=== PATIENT | male | born 1950 | race Asian ===

== ENCOUNTER 2019-05-18 17:15 | Inpatient (IN) | payer OTHER ==
[~2019-05-18] VITALS: Ht 170.2 cm; Wt 77.6 kg
[2019-05-18] MEDS ORDERED: FINA5TAB41 PO (17:36)
[2019-05-18] MEDS ORDERED: AMOX500C2 PO (17:36)
[2019-05-18] MEDS ORDERED: AMLO2.5T4 PO (17:36)
[2019-05-18] MEDS ORDERED: FOLI0.4T14 PO (17:36)
[2019-05-18] MEDS ORDERED: AMLO5TAB9 PO (17:38)
[2019-05-18] MEDS ORDERED: FOLI1 PO (17:38)
[2019-05-18] MEDS ORDERED: 0.9% SODIUM CHLORIDE 10 ML SYRINGE IVP PRN ×2 (18:00→20:45)
[2019-05-18] MEDS ORDERED: SODIUM CHLORIDE 0.9% 2,350 ML IV ONE (18:03)
[2019-05-18] MEDS ORDERED: IOVERSOL 320 MG/ML 100 ML VIAL ONE (18:10)
[2019-05-18] MEDS ORDERED: SODIUM CHLORIDE 0.9% 100 ML ONE (18:10)
[2019-05-18] MEDS ORDERED: ACETAMINOPHEN 500 MG TABLET PO ONE (18:15)
[2019-05-18 18:45] LABS: APPEARANCE,URINE CLOUDY (CLEAR); BILIRUBIN,URINE NEGATIVE (NEGATIVE); GLUCOSE, URINE (UA) NEGATIVE (NEGATIVE); KETONES,URINE NEGATIVE (NEGATIVE); LEUKOCYTE ESTERASE ,URINE LARGE (NEGATIVE); NITRATE,URINE NEGATIVE (NEGATIVE); OCCULT BLOOD,URINE SMALL (NEGATIVE); PROTEIN,URINE POS 1+ (NEGATIVE); UROBILINOGEN,URINE 0.2 mg/dL (<=1.0)
[2019-05-18 18:54] LABS: BASOPHILS % (AUTO) 0.2 % (0.0-2.0); EOSINOPHILS % (AUTO) 0.1 % (1.0-6.0); HEMATOCRIT 35.7 % (41-53); HEMOGLOBIN 11.2 g/dL (13.5-17.5); LYMPHOCYTES # (AUTO) 1.1 K/uL (1.0-4.8); LYMPHOCYTES % (AUTO) 6.6 % (22.0-44.0); MEAN CORPUSCULAR HEMOGLOBIN 20.4 pg (26.0-34.0); MEAN CORPUSCULAR HGB CONC 31.3 G/dL (31.0-37.0); MEAN CORPUSCULAR VOLUME 65 fL (80-100); MONOCYTES # (AUTO) 1.7 K/uL (0.1-1.0); MONOCYTES % (AUTO) 9.8 % (2.0-9.0); NEUTROPHILS # (AUTO) 14.4 K/uL (1.8-7.7); NEUTROPHILS % (AUTO) 83.3 % (40.0-70.0); PLATELET COUNT (AUTO) 221 K/uL (150-450); RED BLOOD CELL COUNT(AUTO) 5.46 MIL/uL (4.50-5.90); RED CELL DISTRIBUTION WIDTH 16.4 % (11.5-14.5)
[2019-05-18 19:09] LABS: ANION GAP 11 mmol/L (8-16); CALCIUM, TOTAL 8.9 mg/dL (8.8-10.5); CARBON DIOXIDE 24 mmol/L (22-29); CHLORIDE 101 mmol/L (98-107); CREATININE 1.12 mg/dL (0.60-1.30); GLOMERULAR FILTR. RATE CALC > 60 mL/min (>60); GLUCOSE,RANDOM 120 mg/dL (70-110); POTASSIUM 3.6 mmol/L (3.5-5.1); SODIUM SERUM 136 mmol/L (136-145); UREA NITROGEN, BLOOD 17 mg/dL (7-18)
[2019-05-18 19:13] LABS: BACTERIA,URINE Few /HPF (None Seen); RBC,URINE 0-2 /HPF (0-2)
[2019-05-18 19:13] LABS: INR 1.1 (0.9-1.1); PROTHROMBIN TIME 11.1 SEC (9.4-11.6)
[2019-05-18 19:16] LABS: SQUAMOUS EPITHELIAL CELL,UR None Seen /LPF (None Seen)
[2019-05-18 19:16] LABS: ALANINE AMINOTRANSFERASE 25 U/L (12-78); ALBUMIN 3.7 g/dL (3.4-5.0); ALKALINE PHOSPHATASE 79 U/L (46-116); ASPARTATE AMINOTRANSFERASE 19 U/L (15-37); BILIRUBIN,TOTAL 2.1 mg/dL (0.1-1.0); TOTAL PROTEIN, SERUM 7.8 g/dL (6.4-8.2)
[2019-05-18 19:18] LABS: LACTIC ACID 1.2 mmol/L (0.4-2.0)
[2019-05-18 19:20] LABS: WBC,URINE >100 /HPF (0-5)
[2019-05-18 20:07] LABS: INFLUENZA TYPE A NEGATIVE FOR TYPE A (NEGATIVE); INFLUENZA TYPE B NEGATIVE FOR TYPE B (NEGATIVE)
[2019-05-18] MEDS ORDERED: ACETAMINOPHEN 325 MG TABLET PO PRN (20:45)
[2019-05-18] MEDS ORDERED: ONDANSETRON HCL 4 MG/2 ML VIAL IVP PRN (20:45)
[2019-05-18 21:55] VITALS: BP 139/85
[2019-05-18 23:31] VITALS: BP 119/58
[2019-05-19] MEDS ORDERED: PNEUMOCOCCAL VACCINE POLYVALENT 0.5 ML VIAL [PPSV23] IM ONE (00:30)
[2019-05-19] MEDS ORDERED: ZOLPIDEM TARTRATE 5 MG TABLET PO PRN (01:45)
[2019-05-19] MEDS ORDERED: 0.9% SODIUM CHLORIDE 10 ML SYRINGE IVP PRN (01:45)
[2019-05-19] MEDS ORDERED: ONDANSETRON HCL 4 MG/2 ML VIAL IVP PRN (01:45)
[2019-05-19 04:10] VITALS: BP 112/57
[2019-05-19 06:44] LABS: EOSINOPHILS % (AUTO) 0.1 % (1.0-6.0); HEMATOCRIT 33.6 % (41-53); HEMOGLOBIN 10.7 g/dL (13.5-17.5); LYMPHOCYTES # (AUTO) 2.1 K/uL (1.0-4.8); LYMPHOCYTES % (AUTO) 12.1 % (22.0-44.0); MEAN CORPUSCULAR HEMOGLOBIN 21.1 pg (26.0-34.0); MEAN CORPUSCULAR HGB CONC 31.8 G/dL (31.0-37.0); MEAN CORPUSCULAR VOLUME 66 fL (80-100); MONOCYTES # (AUTO) 1.2 K/uL (0.1-1.0); MONOCYTES % (AUTO) 6.8 % (2.0-9.0); NEUTROPHILS # (AUTO) 14.4 K/uL (1.8-7.7); PLATELET COUNT (AUTO) 186 K/uL (150-450); RED BLOOD CELL COUNT(AUTO) 5.07 MIL/uL (4.50-5.90); RED CELL DISTRIBUTION WIDTH 16.8 % (11.5-14.5)
[2019-05-19 07:11] LABS: ALANINE AMINOTRANSFERASE 20 U/L (12-78); ALBUMIN 3.1 g/dL (3.4-5.0); ALKALINE PHOSPHATASE 68 U/L (46-116); ANION GAP 10 mmol/L (8-16); ASPARTATE AMINOTRANSFERASE 19 U/L (15-37); BILIRUBIN,TOTAL 2.5 mg/dL (0.1-1.0); CALCIUM, TOTAL 8.5 mg/dL (8.8-10.5); CARBON DIOXIDE 24 mmol/L (22-29); CHLORIDE 105 mmol/L (98-107); CREATININE 1.02 mg/dL (0.60-1.30); GLOMERULAR FILTR. RATE CALC > 60 mL/min (>60); GLUCOSE,RANDOM 116 mg/dL (70-110); POTASSIUM 3.4 mmol/L (3.5-5.1); SODIUM SERUM 139 mmol/L (136-145); UREA NITROGEN, BLOOD 12 mg/dL (7-18)
[2019-05-19 07:13] VITALS: BP 123/72
[2019-05-19] MEDS ORDERED: SODIUM CHLORIDE 0.9% 500 ML IV ONE (07:42)
[2019-05-19] MEDS: CefTRIAXone 1 GM/DEXTROSE 50 ML IV SCH (08:01)
[2019-05-19] MEDS: HEPARIN SODIUM,PORCINE 5,000 UNITS/ML VIAL SQ SCH ×2 (08:01→16:38)
[2019-05-19] MEDS: DOCUSATE SODIUM 100 MG CAPSULE PO SCH ×2 (08:02→21:14)
[2019-05-19] MEDS: FOLIC ACID 1 MG TABLET PO SCH (08:02)
[2019-05-19] MEDS: PANTOPRAZOLE SODIUM 40 MG DR TABLET PO SCH (08:02)
[2019-05-19] MEDS: FINASTERIDE 5 MG TABLET PO SCH (08:02)
[2019-05-19] MEDS ORDERED: AmLODIPine BESYLATE 5 MG TABLET PO SCH (09:00)
[2019-05-19 10:34] VITALS: BP 126/76
[2019-05-19 15:40] VITALS: BP 136/80
[2019-05-19] MEDS ORDERED: FERR-82 PO (17:28)
[2019-05-19] MEDS ORDERED: TERA5CAP12 PO (17:28)
[2019-05-19] MEDS: TERAZOSIN HCL 5 MG CAPSULE PO SCH (18:12)
[2019-05-19] MEDS: FERROUS SULFATE 325 MG EC TABLET PO SCH (18:12)
[2019-05-19 19:07] VITALS: BP 124/79
[2019-05-19] MEDS: ACETAMINOPHEN 325 MG TABLET PO PRN (21:14)
[2019-05-19 23:38] VITALS: BP 131/79
[2019-05-20 04:20] VITALS: BP 138/66
[2019-05-20 07:05] LABS: BASOPHILS % (AUTO) 0.1 % (0.0-2.0); EOSINOPHILS % (AUTO) 0.8 % (1.0-6.0); HEMATOCRIT 33.2 % (41-53); HEMOGLOBIN 10.4 g/dL (13.5-17.5); LYMPHOCYTES # (AUTO) 1.5 K/uL (1.0-4.8); LYMPHOCYTES % (AUTO) 13.4 % (22.0-44.0); MEAN CORPUSCULAR HEMOGLOBIN 20.6 pg (26.0-34.0); MEAN CORPUSCULAR HGB CONC 31.5 G/dL (31.0-37.0); MEAN CORPUSCULAR VOLUME 66 fL (80-100); MONOCYTES # (AUTO) 0.9 K/uL (0.1-1.0); MONOCYTES % (AUTO) 7.8 % (2.0-9.0); NEUTROPHILS # (AUTO) 8.7 K/uL (1.8-7.7); NEUTROPHILS % (AUTO) 77.9 % (40.0-70.0); PLATELET COUNT (AUTO) 194 K/uL (150-450); RED BLOOD CELL COUNT(AUTO) 5.06 MIL/uL (4.50-5.90); RED CELL DISTRIBUTION WIDTH 17.4 % (11.5-14.5)
[2019-05-20 07:13] VITALS: BP 118/72
[2019-05-20 07:28] LABS: ANION GAP 10 mmol/L (8-16); CALCIUM, TOTAL 8.4 mg/dL (8.8-10.5); CARBON DIOXIDE 24 mmol/L (22-29); CHLORIDE 103 mmol/L (98-107); CREATININE 0.94 mg/dL (0.60-1.30); GLOMERULAR FILTR. RATE CALC > 60 mL/min (>60); GLUCOSE,RANDOM 174 mg/dL (70-110); POTASSIUM 3.6 mmol/L (3.5-5.1); SODIUM SERUM 137 mmol/L (136-145)
[2019-05-20 07:43] LABS: UREA NITROGEN, BLOOD 13 mg/dL (7-18)
[2019-05-20] MEDS: FINASTERIDE 5 MG TABLET PO SCH (08:15)
[2019-05-20] MEDS: FOLIC ACID 1 MG TABLET PO SCH (08:15)
[2019-05-20] MEDS: HEPARIN SODIUM,PORCINE 5,000 UNITS/ML VIAL SQ SCH ×3 (08:15→16:29)
[2019-05-20] MEDS: PANTOPRAZOLE SODIUM 40 MG DR TABLET PO SCH (08:15)
[2019-05-20] MEDS: FERROUS SULFATE 325 MG EC TABLET PO SCH ×3 (08:15→17:53)
[2019-05-20] MEDS: DOCUSATE SODIUM 100 MG CAPSULE PO SCH ×2 (08:15→20:24)
[2019-05-20] MEDS: CefTRIAXone 1 GM/DEXTROSE 50 ML IV SCH (08:16)
[2019-05-20] MEDS: TERAZOSIN HCL 5 MG CAPSULE PO SCH (08:18)
[2019-05-20 11:22] VITALS: BP 133/80
[2019-05-20 15:58] VITALS: BP 128/78
[2019-05-20 19:44] VITALS: BP 121/86
[2019-05-20] MEDS: TAMSULOSIN HCL 0.4 MG CAPSULE PO SCH (20:24)
[2019-05-20] MEDS: ACETAMINOPHEN 325 MG TABLET PO PRN (22:52)
[2019-05-20 23:50] VITALS: BP 127/78
[2019-05-21] MEDS: HEPARIN SODIUM,PORCINE 5,000 UNITS/ML VIAL SQ SCH ×2 (00:12→08:10)
[2019-05-21 05:03] VITALS: BP 133/83
[2019-05-21 07:14] VITALS: BP 142/94
[2019-05-21 07:22] LABS: THYROID STIMULATING HORMONE 32.18 uIU/mL (0.36-3.74)
[2019-05-21] MEDS: FERROUS SULFATE 325 MG EC TABLET PO SCH ×2 (08:09→12:09)
[2019-05-21] MEDS: DOCUSATE SODIUM 100 MG CAPSULE PO SCH (08:09)
[2019-05-21] MEDS: CefTRIAXone 1 GM/DEXTROSE 50 ML IV SCH (08:09)
[2019-05-21] MEDS: TERAZOSIN HCL 5 MG CAPSULE PO SCH (08:09)
[2019-05-21] MEDS: PANTOPRAZOLE SODIUM 40 MG DR TABLET PO SCH (08:09)
[2019-05-21] MEDS: FINASTERIDE 5 MG TABLET PO SCH (08:09)
[2019-05-21] MEDS: TAMSULOSIN HCL 0.4 MG CAPSULE PO SCH (08:09)
[2019-05-21] MEDS: FOLIC ACID 1 MG TABLET PO SCH (08:09)
[2019-05-21] MEDS ORDERED: ASPIRIN 81 MG CHEWABLE TABLET PO SCH (09:00)
[2019-05-21] MEDS ORDERED: METOPROLOL TARTRATE 25 MG TABLET PO SCH (09:00)
[2019-05-21 11:41] VITALS: BP 124/75
[2019-05-21] MEDS ORDERED: ASPI-1182 PO (12:25)
[2019-05-21] MEDS ORDERED: METO25 PO (12:25)
[2019-05-21] MEDS ORDERED: CEPH500 PO (12:25)
[2019-05-21] MEDS ORDERED: TAMS-1 PO (12:25)
[2019-05-21] MEDS ORDERED: LEVO50 PO (12:25)
[2019-05-21 12:56] LABS: FREE T4 (FREE THYROXINE) 1.08 ng/dL (0.76-1.46)
[2019-05-21] MEDS ORDERED: APIX5TAB PO (14:28)
== END 2019-05-21 15:00 | disposition home or self-care (01) | DRG 720 ==
LOC: EMS 17:19 → 5S 21:08 → EDBD 21:08
PROVIDERS: ADMIT Internal Medicine; ATTEND Internal Medicine
DX: A41.9 Sepsis, unspecified organism (principal); I48.0 Paroxysmal atrial fibrillation; I48.2 Chronic atrial fibrillation; N28.1 Cyst of kidney, acquired; N10 Acute pyelonephritis; I10 Essential (primary) hypertension; E87.6 Hypokalemia; N28.89 Other specified disorders of kidney and ureter; N40.0 Benign prostatic hyperplasia without lower urinary tract symptoms; E03.9 Hypothyroidism, unspecified
CPT/HCPCS: 74177; 76770; 83605; 83735; 84439; 84443; 87040; 87086; 87804; 93005; 93306; 99406; J0696; J1644; J7030; J7040; J7050